=== PATIENT | male | born 1980 | race African-American/Black ===

== ENCOUNTER 2017-01-05 22:28 | Emergency (ER) | payer OTHER ==
[2017-01-05 22:44] VITALS: BP 115/74; PULSE 75; TEMP 98.2; BMI 22.3
--- NOTE | 2017-01-05 23:42 | PDOC ---
History of Present Illness - General Chief Complaint: Laceration Stated Complaint: R LEG LAC Time Seen by Provider: 01/05/17 23:39 History Source: Patient Exam Limitations: No Limitations - History of Present Illness Initial Comments: 01/05/17 23:39 36-year-old male presents to the emergency department complaining of a laceration to the right thigh. Patient states after having a couple of drinks this evening, he slipped and fell onto a knife that he was holding. Patient denies any extremity numbness or tingling sensation. Patient denies any other complaints. Last tetanus: One year ago. Timing/Duration: reports: just prior to arrival Past History - Past Medical History Allergies/Adverse Reactions: Allergies Allergy/AdvReac Type Severity Reaction Status Date / Time shellfish derived Allergy Verified 01/05/17 22:37 Home Medications: Ambulatory Orders Cephalexin [Keflex] 250 mg PO QID #28 capsule 05/24/16 Ibuprofen 600 mg PO QID PRN #60 tablet 05/24/16 Other medical history: Pt denies - Psycho/Social/Smoking Cessation Hx Suicidal Ideation: No Smoking History: Never smoked Have you smoked in the past 12 months: No Number of Cigarettes Smoked Daily: 10 Information on smoking cessation initiated: No 'Breaking Loose' booklet given: 05/02/16 Hx Alcohol Use: No Drug/Substance Use Hx: No Substance Use Type: None Review of Systems - Review of Systems Able to Perform ROS?: Yes Comments:: 01/05/17 23:40 CONSTITUTIONAL: Absent: fever, chills, diaphoresis, generalized weakness, malaise, loss of appetite Absent: myalgia, arthralgia, joint swelling SKIN: Absent: rash, itching, pallor HEMATOLOGIC/IMMUNOLOGIC: Absent: easy bleeding, easy bruising, lymphadenopathy, frequent infections ENDOCRINE: Absent: unexplained weight gain, unexplained weight loss, heat intolerance, cold intolerance Right ant mid thigh lac/ +slight pain Is the patient limited Jamaican proficient: No *Physical Exam - Vital Signs Last Vital Signs Temp Pulse Resp BP Pulse Ox 98.2 F 75 19 115/74 98 01/05/17 22:39 01/05/17 22:39 01/05/17 22:39 01/05/17 22:39 01/05/17 22:39 - Physical Exam Comments: 01/05/17 23:40 GENERAL: Well developed, well nourished. Awake and alert. No acute distress. MUSCULOSKELETAL Normal range of motion at all joints. No bony deformities or tenderness. No CVA tenderness. EXTREMITIES: No cyanosis. No clubbing. No edema. No calf tenderness. SKIN: Warm and dry. Normal capillary refill. No rashes. No jaundice. Right ant mid thigh/lat aspect 2cm vertical lac Neg active bleed Neg FB Neg pain on palp Progress Note - Progress Note Progress Note: Procedure: Right lat mid thigh 2cm vert lac betadine prep partial thickness NS irrigation (2) 4.0 vicryl dq (4) 4.0 nylon simple interrupted Bacitracin Bandaid *DC/Admit/Observation/Transfer Diagnosis at time of Disposition: Thigh laceration Qualifiers: Encounter type: initial encounter Laterality: right Qualified Code(s): S71.111A - Laceration without foreign body, right thigh, initial encounter - Discharge Dispostion Disposition: HOME Condition at time of disposition: Stable Admit: No - Referrals Referrals: Ana Ulloa MD [Primary Care Provider] - - Patient Instructions Printed Discharge Instructions: DI for Laceration Repair Additional Instructions: Keep the incision clean and dry for 24 hours. After 24 hours, you may allow the soap and water to rinse off your incision. Avoid direct pressure of the water to the incision. Pat the incision dry with a clean clothe. Apply a small amount of bacitracin onto the incision. Cover the incision loosely with a bandaid. Take tylenol/motrin as needed for pain. Follow up with your physician or the ER in 48 hours for a wound check. Return to the ER if you notice red streaks, increase redness/swelling/severe pain to the incision. Suture removal in 12 days.
== END 2017-01-06 00:10 | disposition home or self-care (01) ==
LOC: JER 22:28
PROC: 0HQHXZZ Repair Right Upper Leg Skin, External Approach (ICD-10-PCS; principal; 2017-01-05)
DX: S71.111A Laceration without foreign body, right thigh, initial encounter (principal); W26.0XXA Contact with knife, initial encounter; Y93.89 Activity, other specified; Y92.89 Other specified places as the place of occurrence of the external cause
CPT/HCPCS: 12001; 99283-25